=== PATIENT | female | born 1960 | race Caucasian/White ===

== ENCOUNTER 2023-10-19 09:56 | Emergency (ER) | payer OTHER, SELFPAY ==
[2023-10-19 10:06] VITALS: BP 120/72
[2023-10-19 10:51] VITALS: BMI 21.0
[2023-10-19] MEDS: ZOFRAN 4 MG IV (11:06)
[2023-10-19] MEDS: NSS 1000 IV (11:06)
[2023-10-19 11:07] LABS: % Basophils 0.4 % (0-2); % Eosinophils 0.1 % (0-6); % Immature Granulocytes 0.3 % (0-0.5); % Lymphocytes 4.7 % (20.5-51.1); % Monocytes 5.6 % (1.7-9.3); % Neutrophils 88.9 % (42.2-75.2); Absolute Lymphocytes 0.5 10^3/uL (1.2-3.4); Absolute Monocytes 0.6 10^3/uL (0.1-0.6); Absolute Neutrophils 9.8 10^3/uL (1.4-6.5); Hematocrit 45.9 % (37.0-47.0); Hemoglobin 15.1 g/dL (12.0-16.0); Mean Corp Hgb Conc. 32.9 g/dL (33.0-37.0); Mean Corpuscular Hgb 28.5 pg (27.0-31.0); Mean Corpuscular Volume 86.6 fL (81.0-99.0); Mean Platelet Volume 9.2 fL (7.4-10.4); Nucleated Red Blood Cells % 0 %; Platelet Count 237 10^3/uL (130-400); Red Cell Dist. Width 13.8 % (11.5-14.5)
[2023-10-19 11:24] LABS: ALT (SGPT) 19 U/L (0-35); AST (SGOT) 28 U/L (14-36); Albumin 4.4 g/dl (3.5-5.0); Alkaline Phosphatase 104 U/L (38-126); Blood Urea Nitrogen 6 mg/dl (7-17); Calcium 8.9 mg/dl (8.4-10.2); Carbon Dioxide 24 mmol/L (22-30); Chloride 104 mmol/L (98-107); Estimated Creatinine Clearance 79 ml/min; Glucose 109 mg/dl (70-99); Lipase 54 U/L (23-300); Potassium 4.3 mmol/L (3.5-5.1); Sodium 133 mmol/L (135-145); Total Bilirubin 0.9 mg/dl (0.2-1.3); Total Protein 6.9 g/dl (6.3-8.2); eGFR > 60.00
[2023-10-19] MEDS: PEPCID 20 MG IV (11:30)
--- NOTE | 2023-10-19 11:43 | ED.GENMED ---
History of Present Illness
General
Chief Complaint: Abdominal Symptoms
Source: patient
Exam Limitations: none
Time Seen by Provider: 10/19/23 10:49
Nursing documentation reviewed up to this point in time: agreed with
Travel History
Have you had any contact with someone who has COVID-19?: No
Do you have any symptoms of coronavirus? Fever > 100 degrees, chills, cough, shortness of breath, sore throat, loss of taste or smell, muscle aches, or headache?: No
History of Present Illness
History of Present Illness:
63-year-old female with past medical history of hypothyroidism presenting to the emergency department today with concerns of nausea and vomiting over the past 24 hours. This seemed to start after receiving her second shingles vaccination yesterday.
Denies any significant abdominal pain change in bowel movements fevers did have some chills. Had not similar but more mild symptoms with her first shingles vaccination.
Past History
Past History
ED Past Medical History: GERD (Gastritis), Hypothyroidism and Other (Migraine headaches, irritable bowel)
ED Past Surgical History: Tonsilectomy and Other ([place] teeth)
Social History
Tobacco: Non-smoker
Alcohol: None
Drug: None
Personal:
Living: with family
Employment: Employed
Family History
Family History: Early CAD (Father's side of the family in males that smoked heavily) and CAD
Review of Systems
Review of Systems
Allergies reviewed?: Yes
All Other Systems: ROS reviewed and negative except as documented in HPI and ROS
Phy Exam
Physical Exam
Physical Exam:
GENERAL: Alert , in no apparent distress
EYE: pupils equal and reactive
NECK: Supple, no significant adenopathy.
ENT: o/p clr, mmm.
CARDIAC: Regular rate and rhythm .
LUNGS: Clear breath sounds bilaterally, no acute respiratory distress, no wheezes/rales/rhonchi
ABDOMEN: Soft, without focal tenderness, no r/g, no cvat
NEUROLOGICAL: Alert and oriented, no focal neuro deficits
SKIN: Warm and dry, skin intact.
MUSCULOSKELETAL: No edema, well perfused.
PSYCH: Normal and appropriate interaction.
Course
Orders/Labs/Results
Orders:
Orders
10/19/23 10:59
Complete Blood Count/With Diff Urgent
Comprehensive Metabolic Panel Urgent
Lipase Urgent
10/19/23 11:03
0.9% Sodium Chloride 1000 ml [Nss] 1,000 ml IV BOLUS
Famotidine [Pepcid] 20 mg IV NOW STA
Ondansetron Injectable [Zofran] 4 mg IV NOW STA
10/19/23 11:04
Ondansetron Injectable [Zofran] 4 mg .ROUTE .STK-MED ONE
10/19/23 11:15
Sterile Water [Sterile Water For Injection] 10 ml .ROUTE .STK-MED ONE
Abnormal Lab Results
10/19/23
10:59
WBC 11.0 H 10^3/uL
(4.8-10.8)
MCHC 32.9 L g/dL
(33.0-37.0)
Absolute Neuts (auto) 9.8 H 10^3/uL
(1.4-6.5)
Absolute Lymphs (auto) 0.5 L 10^3/uL
(1.2-3.4)
Neutrophils % 88.9 H %
(42.2-75.2)
Lymphocytes % 4.7 L %
(20.5-51.1)
Sodium 133 L mmol/L
(135-145)
BUN 6 L mg/dl
(7-17)
Glucose 109 H mg/dl
(70-99)
10/19/23 10:59
10/19/23 10:59
Vital Signs
Initial and Last Documented VS:
Initial Vital Signs
Temp Pulse Resp BP Pulse Ox
98.9 F 96 16 120/72 99
10/19/23 10:06 10/19/23 10:06 10/19/23 10:06 10/19/23 10:06 10/19/23 10:06
Last Documented Vital Signs
Temp Pulse Resp BP Pulse Ox
98.9 F 96 16 120/72 99
10/19/23 10:06 10/19/23 10:06 10/19/23 10:06 10/19/23 10:06 10/19/23 10:06
MDM/Problems Addressed
MDM/Problems Addressed:
63-year-old female presenting to the emergency department today with concerns of nausea and vomiting since yesterday after receiving the shingles vaccination. Here no abdominal pain vital signs are normal patient no obvious distress white count of
11.0 but otherwise labs unremarkable. Patient with improvement of symptoms after receiving Zofran and fluids. Patient appears stable for outpatient management given return precautions. Symptoms could be secondary to side effects. Unlikely be
acute surgical process of the abdomen considering no abdominal pain and normal labs.
*Critical Care Note
Total Time (30-74mins, 75-104mins- exclusive of procedures): Not Applicable
ED Attending Note
-
Portions of this chart may have been created with voice recognition software.� Occasional wrong word or��sound alike� substitutions may have occurred due to the inherent limitations of voice recognition software.
Discharge Plan
Departure
Patient Disposition: Home (Routine Discharge)
Date of Disposition: 10/19/23
Time of Disposition: 12:30
Patient with high blood pressure during this ER visit?: No
Condition: Good
Covid-19: Not Applicable
Discharge Problem:
Nausea & vomiting
Instructions: Nausea and Vomiting, Adult (DC)
Prescriptions:
New
ondansetron 4 mg tablet,disintegrating
4 mg PO Q6H PRN (Reason: nausea and vomiting) Qty: 7 0RF
No Action
levothyroxine 50 MCG tablet
50 mcg PO DAILY
Vitamin D2 25,000 unit Capsule
50,000 unit PO DAILY
Nurtec ODT 75 mg Tablet,Disintegrating
75 mg PO ONCE PRN (Reason: migraines)
lidocaine [Lidoderm] 5 % adhesive patch,medicated
2 patch topical DAILY Qty: 15 0RF
valacyclovir 1 gram tablet
1,000 mg PO Q8H Qty: 21 0RF
oxycodone-acetaminophen [Percocet] 5-325 mg tablet
1 tab PO Q6HPRN PRN (Reason: pain) Qty: 7 0RF
Referrals:
Ely Gutierrez MD [Family Provider] -
Activity Restrictions/Additional Instructions:
You came to the emergency department today with concerns of nausea vomiting since yesterday. Here you had a reassuring evaluation and exam. Please take Zofran and Benadryl as needed to help with symptoms return to the emergency department for any
worsening, new or concerning symptoms.
Interventions
Interventions:
*Risk Screen - Suicide Last Done: 10/19/23 10:06
*General Assessment Last Done: 10/19/23 10:06
*Neglect/Abuse Screening Last Done: 10/19/23 10:06
ED- Fall Risk Assessment Last Done: 10/19/23 11:01
*ED COVID-19 Vaccine History Last Done: 10/19/23 10:06
AF-Tifuab-Eiuotgkypm Assessment Last Done: 10/19/23 11:01
== END 2023-10-19 12:52 | disposition home or self-care (01) ==
LOC: EMR 09:56
PROVIDERS: Emergency Medicine; EMERGENCY PHYSICIAN Emergency Medicine; FAMILY PHYSICIAN Family Medicine
DX: R11.2 Nausea with vomiting, unspecified (principal); K21.9 Gastro-esophageal reflux disease without esophagitis; E03.9 Hypothyroidism, unspecified; K58.9 Irritable bowel syndrome, unspecified; G43.909 Migraine, unspecified, not intractable, without status migrainosus; K29.70 Gastritis, unspecified, without bleeding; Z88.1 Allergy status to other antibiotic agents; Z88.8 Allergy status to other drugs, medicaments and biological substances
CPT/HCPCS: 99284; 96374; 96375; 96361; 80053; 83690; 85025

== ENCOUNTER 2023-12-31 12:02 | Inpatient (IN) | payer OTHER, SELFPAY ==
[2023-12-31] VITALS (15 sets, daily range): BP systolic 123–153; BP diastolic 71–89; BMI 21.0; BMI 20.3
--- NOTE | 2023-12-31 07:28 | ED.GENMED ---
History of Present Illness
General
Chief Complaint: Chest Pain
Time Seen by Provider: 12/31/23 07:12
Travel History
Have you had any contact with someone who has COVID-19?: No
Do you have any symptoms of coronavirus? Fever > 100 degrees, chills, cough, shortness of breath, sore throat, loss of taste or smell, muscle aches, or headache?: No
History of Present Illness
History of Present Illness:
63-year-old female presents to the emergency department for evaluation of left upper quadrant abdominal pain gradually worsening for the past week. She noticed the pain developing shortly after testing positive for COVID-19 on December 20. Pain is
pleuritic in nature, and worse with certain body positions. Denies any clear worsening with supine posture. Denies any chest pain, forceful coughing, fevers, or night sweats. No leg swelling or calf pain. Appetite is diminished but no
postprandial pain, no vomiting or diarrhea.
Past History
Past History
ED Past Medical History: GERD (Gastritis), Hypothyroidism and Other (Migraine headaches, irritable bowel)
ED Past Surgical History: Tonsilectomy and Other ([place] teeth)
Social History
Tobacco: Non-smoker
Alcohol: None
Drug: None
Personal:
Living: with family
Employment: Employed
Family History
Family History: Early CAD (Father's side of the family in males that smoked heavily) and CAD
Review of Systems
Review of Systems
Allergies reviewed?: Yes
All Other Systems: ROS reviewed and negative except as documented in HPI and ROS
Phy Exam
Physical Exam
Physical Exam:
GEN: Well appearing, NAD, WDWN
Eyes: PERRLA, EOMs intact, no scleral icterus
HENT: NCAT, oral mucosa moist, no JVD, no cervical adenopathy.
Lungs: CTAB, no wheezes, rales, rhonchi, normal chest wall excursion
Cardiac: RRR, no M/R/G, no peripheral edema. Radial pulses 2+ bilat
Abdomen: Soft, moderate tenderness to the epigastrium and left upper quadrant, increased pain with attempted splenic capture but no palpable splenomegaly
Neuro: AO x 3
MSK: No gross deformity or ecchymosis. No edema. No digital clubbing
Skin: No rashes, petechiae. Normal color, no pallor or jaundice.
Psych: Calm, cooperative, proper hygiene
Scores
Heart Score for Chest Pain Patients
STEMI patient?: No
History: Slightly or Non-Suspicious
ECG: Normal
Age: >45 - <65 years
Risk Factors: 1 or 2 Risk Factors
Troponin: </= Normal Limit
Heart Score for Chest Pain Patients: 2
Heart Score Risk: 2.5% MACE over next 6 weeks
Course
Orders/Labs/Results
Orders:
Orders
12/31/23 07:09
Electrocardiogram (*1) Urgent
Reason for Study: Abdominal Pain
EKG- Treatment ONCE
12/31/23 07:46
C-Reactive Protein Urgent
Comment: ADD ON
Complete Blood Count/With Diff Urgent
Comprehensive Metabolic Panel Urgent
Erythrocyte Sed Rate Urgent
Comment: ADD ON
Lipase Urgent
Comment: ADD ON
NT-proBNP Urgent
Troponin I Urgent
12/31/23 08:08
D-Dimer Urgent
12/31/23 08:20
Add On- LAB Urgent
Tests Added?: lipase
12/31/23 09:24
CR Chest - 2 Views Urgent
Comment:
Reason For Exam: chest pain
12/31/23 Lunch
Regular
12/31/23 10:01
Aspirin 325 mg PO NOW STA
12/31/23 10:08
CARDIOLOGY CONSULT Routine
Consulting Provider: Daniele Joy
Was physician already notified: Yes
12/31/23 10:21
Add On- LAB Routine
Tests Added?: sed rate, crp
12/31/23 11:48
Admit/Transfer Patient As Directed
Co-Sign Provider:
Level of Care: Inpatient admission
Assign to:: Telemetry
Physician / Group: Yolanda/hospitalist
Diagnosis: pleuritic chest pain
Reason for Telemetry: Other
Other Reason for Telemetry: peluritic chest pain
Date to Stop Telemetry: 01/02/24
Time to Stop Telemetry: 11:00
Reason for Hospitalization: pericarditis
Expected length of stay greater than two midnights?: Yes
ELOS- Estimated Length of Stay in days: 3
I certify the patient meets the requirements for IP care: Yes
12/31/23 11:50
Code Status As Directed
Resuscitation Status: Full Code
12/31/23 12:00
Colchicine 0.6 mg PO BID
12/31/23 13:00
Pantoprazole [Protonix IV] 40 mg IV DAILY
12/31/23 14:14
Acetaminophen [Tylenol] 650 mg PO Q4HWA
Bisacodyl [Dulcolax] 10 mg RECTAL [id number] PRN
Docusate W/Senna [Senokot-S] 1 tablet PO BIDPRN PRN
Ondansetron Injectable [Zofran] 4 mg IV Q6HPRN PRN
Polyethylene Glycol Powder [Miralax] 17 grams PO DAILYPRN PRN
rimegepant [Nurtec ODT] 75 mg PO ONCE PRN
12/31/23 14:14
Echo 2D MMode Color/Doppler Routine
Reason for Study: pleuritic chest pain
Activity As Directed
Activity Level: As Tolerated
Pneumatic Compression Sleeves As Directed
Type: Knee high
Vital Signs As Directed
Frequency: Per unit guidelines
DX Deep Vein Thrombosis Video Routine
12/31/23 15:00
Troponin I Q8H
12/31/23 23:00
Troponin I Q8H
01/01/24 06:00
Basic Metabolic Panel IN AM
Complete Blood Count/No Diff IN AM
Magnesium IN AM
01/01/24 08:00
Levothyroxine [Synthroid] 50 mcg PO DAILY
ergocalciferol (vitamin D2) 50,000 unit PO DAILY
01/02/24 06:00
Basic Metabolic Panel IN AM
Complete Blood Count/No Diff IN AM
01/02/24 11:00
DC Protocol for Telemetry ONCE
Abnormal Lab Results
12/31/23
07:46
Absolute Neuts (auto) 6.7 H 10^3/uL
(1.4-6.5)
Lymphocytes % 16.6 L %
(20.5-51.1)
Glucose 109 H mg/dl
(70-99)
Troponin I 0.054 H* ng/ml
C-Reactive Protein 36.60 H mg/L
(0.0-10.00)
12/31/23 07:46
12/31/23 07:46
Vital Signs
Initial and Last Documented VS:
Initial Vital Signs
Temp Pulse Resp BP Pulse Ox
98.2 F 90 20 142/85 98
12/31/23 07:03 12/31/23 07:03 12/31/23 07:03 12/31/23 07:03 12/31/23 07:03
Last Documented Vital Signs
Temp Pulse Resp BP Pulse Ox
98.2 F 85 14 131/73 98
12/31/23 07:03 12/31/23 13:00 12/31/23 12:15 12/31/23 13:00 12/31/23 13:00
MDM/Problems Addressed
MDM/Problems Addressed:
63-year-old female presents with epigastric pain that has been gradually worsening. She denies postprandial symptoms and has no vomiting or diarrhea to suggest GI illness. Interestingly she is exquisitely tender to palpation in the epigastrium but
of note the symptoms are also pleuritic and radiates to the scapula. Her workup reveals an elevated troponin the exact etiology of which is not clear. Certainly consider pericarditis however this does not typically raise troponins. She does not
present ill enough or clinical signs of CHF to suggest myocarditis. Certainly could reflect cardiac injury in the setting of COVID, nevertheless given the uncertainty of the diagnosis we will admit this patient for further cardiac workup
Comment
Comment:
EKG independently interpreted by me shows normal sinus rhythm at a rate of [address] changes suspicious for ischemia, QTc of 453
*Critical Care Note
Total Time (30-74mins, 75-104mins- exclusive of procedures): Not Applicable
ED Attending Note
-
Portions of this chart may have been created with voice recognition software.� Occasional wrong word or��sound alike� substitutions may have occurred due to the inherent limitations of voice recognition software.
Discharge Plan
Departure
Patient Disposition: Admit
Date of Disposition: 12/31/23
Time of Disposition: 10:03
Admit to: Telemetry
Presentation/result/management discussed w/ accepting MD/DO: Hospitalist
Discharge Problem:
Acute pericarditis
Interventions
Interventions:
*Risk Screen - Suicide Last Done: 12/31/23 07:21
*General Assessment Last Done: 12/31/23 07:21
*Neglect/Abuse Screening Last Done: 12/31/23 07:21
ED- Fall Risk Assessment Last Done: 12/31/23 07:21
*ED COVID-19 Vaccine History Last Done: 12/31/23 07:21
ED- Cardiac Assessment Last Done: 12/31/23 07:21
[2023-12-31 07:57] LABS: % Basophils 0.6 % (0-2); % Eosinophils 0.7 % (0-6); % Immature Granulocytes 0.3 % (0-0.5); % Lymphocytes 16.6 % (20.5-51.1); % Monocytes 6.6 % (1.7-9.3); % Neutrophils 75.2 % (42.2-75.2); Absolute Basophils 0.1 10^3/uL (0-0.2); Absolute Eosinophils 0.1 10^3/uL (0-0.7); Absolute Lymphocytes 1.5 10^3/uL (1.2-3.4); Absolute Monocytes 0.6 10^3/uL (0.1-0.6); Absolute Neutrophils 6.7 10^3/uL (1.4-6.5); Hematocrit 41.3 % (37.0-47.0); Hemoglobin 13.8 g/dL (12.0-16.0); Mean Corp Hgb Conc. 33.4 g/dL (33.0-37.0); Mean Corpuscular Hgb 28.6 pg (27.0-31.0); Mean Corpuscular Volume 85.5 fL (81.0-99.0); Mean Platelet Volume 9.9 fL (7.4-10.4); Nucleated Red Blood Cells % 0 %; Platelet Count 269 10^3/uL (130-400); Red Blood Cell Count 4.83 10^6/uL (4.20-5.40); Red Cell Dist. Width 13.2 % (11.5-14.5)
[2023-12-31 08:07] LABS: ALT (SGPT) 25 U/L (0-35); AST (SGOT) 31 U/L (14-36); Albumin 4.2 g/dl (3.5-5.0); Alkaline Phosphatase 110 U/L (38-126); Blood Urea Nitrogen 9 mg/dl (7-17); Carbon Dioxide 28 mmol/L (22-30); Chloride 103 mmol/L (98-107); Estimated Creatinine Clearance 79 ml/min; Glucose 109 mg/dl (70-99); Potassium 3.9 mmol/L (3.5-5.1); Sodium 140 mmol/L (135-145); Total Bilirubin 0.6 mg/dl (0.2-1.3); Total Protein 6.7 g/dl (6.3-8.2); eGFR > 60.00
[2023-12-31 08:24] LABS: NT-proBNP 116 pg/ml; Troponin I 0.054 ng/ml
[2023-12-31 08:46] LABS: Lipase 62 U/L (23-300)
[2023-12-31 09:10] LABS: D-Dimer 0.41 ug/mlFEU (0.00-0.50)
--- NOTE | 2023-12-31 10:09 | HPS.HSE ---
Addendum entered and electronically signed by Mirella Guerrero MD 12/31/23 13:36:
Discussed with cardiology, does not feel patient has pericarditis, recommend to hold colchicine for now.
They will still check echocardiogram.
Pettus more epigastric pain given pt gave the story history that pain worse with food.
Will check abdominal CT, and consult GI
Original Note:
Family Physician
-
Family Physician: Ely Gutierrez MD
Chief Complaint
-
pleuritic L lower chest pain
History of Present Illness
HPI: 63-year-old female PMH GERD/gastritis, hypothyroidism, migraine headaches, irritable bowel, recent diagnosis of COVID 12/21/23; p/w left lower pleuritic chest pain that started when she was diagnosed with COVID-19 on December 21, 2023. Pain
localized, worse with taking deep breath, not really related to position.
Pt otherwise denies to other areas of chest pain, abd pain, fever/chills, etc.
Medical History
Past Medical History
Past Medical History: Reports Other
Additional Past Medical History:
GERD/gastritis
hypothyroidism
migraine headaches
irritable bowel
Past Surgical History: Reports Other
Additional Past Surgical History:
distant h/o tonsillectomy, wisdom teeth extraction
Social History
Tobacco: Non-smoker
Alcohol: None
Personal:
Living: With Family
Family History
Family History: Not pertinent
Allergies / Home Medications
Allergies reflects when Allergies were last updated in [employer].
Home Medications with original date entered in [employer]
Allergy/Medication List:
Allergies
Allergy/AdvReac Type Severity Reaction Status Date / Time
ciprofloxacin [From Cipro] Allergy Nausea / Verified 12/31/23 07:03
Vomiting
ciprofloxacin HCl Allergy Nausea / Verified 12/31/23 07:03
[From Cipro] Vomiting
prochlorperazine edisylate Allergy Unknown Verified 12/31/23 07:03
[From Compazine]
prochlorperazine maleate Allergy Unknown Verified 12/31/23 07:03
[From Compazine]
Home Medications
levothyroxine 50 mcg tablet 50 mcg PO SUTUWETHFRSA 08/16/18
rimegepant 75 mg disintegrating tablet (Nurtec ODT) 75 mg PO ONCE PRN migraines 06/15/22
ergocalciferol (vitamin D2) 1,250 mcg (50,000 unit) capsule 1,250 mcg PO SCHULTZ 12/31/23
levothyroxine 50 mcg tablet 100 mcg PO MO 12/31/23
Review of Systems
-
Constitutional: Denies Fever
Cardiac: Reports See HPI
Physical Exam
Vital Signs
Vital Signs
Temp Pulse Resp BP Pulse Ox
36.8 C 84 13 135/71 97
12/31/23 07:03 12/31/23 08:15 12/31/23 08:15 12/31/23 08:00 12/31/23 08:15
Physical Exam
General: Well Developed, Well Nourished, No Apparent Distress, Comfortable and Conversant
HEENT: NormoCephalic, Moist mucous membranes and Atraumatic
Respiratory: Clear and Non Labored Respirations; No Accessory Resp Muscle Use
Cardiac: S1/S2 and Regular Rhythm; No Murmur or Rub
GI: Soft, Non Tender, Non Distended and Normal Bowel Sounds; No Organomegaly
Rectal: Deferred by Provider
Musculoskeletal: No Clubbing, No Cyanosis and No Edema
Skin: No Rash
Neuro: Awake and Nonfocal/grossly intact
Psych: Calm and Intact Judgment/Insight
Laboratory Results
-
12/31/23 07:46
12/31/23 07:46
Laboratory Results
Total Bilirubin 0.6 mg/dl (0.2-1.3) 12/31/23 07:46
AST 31 U/L (14-36) 12/31/23 07:46
ALT 25 U/L (0-35) 12/31/23 07:46
Alkaline Phosphatase 110 U/L (38-126) 12/31/23 07:46
Troponin I 0.054 ng/ml H* 12/31/23 07:46
Lipase 62 U/L (23-300) 12/31/23 07:46
Data Reviewed
-
Diagnostic Radiology: Report Reviewed by me
Lab Data: Labs Reviewed by me
Impression/Plan
-
HPI: 63-year-old female PMH GERD/gastritis, hypothyroidism, migraine headaches, irritable bowel, recent diagnosis of COVID 12/21/23; p/w left lower pleuritic chest pain that started when she was diagnosed with COVID-19 on December 21, 2023. Pain
localized, worse with taking deep breath, not really related to position.
Pt otherwise denies to other areas of chest pain, abd pain, fever/chills, etc.
CXR:
No evidence of active cardiopulmonary disease.
A/P:
# pleuritic left lower chest pain possibly related to COVID associated pericarditis
# troponin elevation likely due to non-ischemic myocardial injury
Trop 0.054 , cont to trend
D-dimer negative which essentially rules out VTE such as PE
Check echo
EKG NSR, unrevealing
Start empiric colchicine with Protonix IV ppx
Card CS
# recent diagnosis of COVID 12/21/23
no resp symptom except pleuritic chest pain
Good sat on RA
# GERD/gastritis
# Hypothyroidism
Cont GIG TENDER Synthroid
# Migraine headaches
# irritable bowel
DVT ppx: SCD
FC
--- NOTE | 2023-12-31 10:17 | CON.CAR ---
Consultation
Consultation Request
Date/Time Consultation Requested: 12/31/23
Date/Time Consultation Performed: 12/31/23
Requesting Provider: Dr Guerrero
Performing Provider: Dr Joy (primary Dr Vasquez)
Reason for Consultation: ? pericarditis with COVID
Medical History
-
Chief Complaint: chest pain
History of Present Illness:
63-year-old female with a past medical history of reflux and hypothyroidism who had COVID 12/21/2023. She reports her course was typical but she did feel awful. She had diffuse myalgias, cough, rhinorrhea, sore throat and extreme fatigue. At times
she would have sharp shooting chest pains wrapping around to her back. However, these have resolved. What brings her in today is a constant upper abdominal pain. It had been intermittent, but today worsened to constant. It is in the midline to
left side. Worse with eating and abdominal distention. She does feel that when she takes a deep breath. There is no pain when she leans forward or lies back. There is no pain in the chest any longer. No black stool and no blood in the urine or
stool.
Past Medical History
Past Medical History: GERD and Hypothyroidism
Past Surgical History: Tonsilectomy
Social History
Tobacco: Non-Smoker
Alcohol: None
Family History
Family History: Early CAD (father <55yo)
Allergies / Home Medications
Allergy/AdvReac Type Severity Reaction Status Date / Time
ciprofloxacin [From Cipro] Allergy Nausea / Verified 12/31/23 07:03
Vomiting
ciprofloxacin HCl Allergy Nausea / Verified 12/31/23 07:03
[From Cipro] Vomiting
prochlorperazine edisylate Allergy Unknown Verified 12/31/23 07:03
[From Compazine]
prochlorperazine maleate Allergy Unknown Verified 12/31/23 07:03
[From Compazine]
�Medication �Instructions �Recorded �Confirmed �Type
levothyroxine 50 mcg tablet 50 mcg PO DAILY 08/16/18 12/31/23 History
ergocalciferol (vitamin D2) 25,000 50,000 unit PO DAILY 06/15/22 12/31/23 History
unit capsule
lidocaine 5 % topical patch 2 patch topical DAILY #15 ea 06/15/22 12/31/23 Rx
(Lidoderm)
rimegepant 75 mg disintegrating 75 mg PO ONCE PRN migraines 06/15/22 12/31/23 History
tablet (Nurtec ODT)
Review of Systems
-
All other systems: Negative unless noted
Physical Exam
Vital Signs
Temp Pulse Resp BP Pulse Ox
98.2 F 84 13 135/71 97
12/31/23 07:03 12/31/23 08:15 12/31/23 08:15 12/31/23 08:00 12/31/23 08:15
Lab Results
12/31/23 07:46
12/31/23 07:46
Troponin I 0.054 ng/ml H* 12/31/23 07:46
Ngn-C-Iuowofevyib Pept 116 pg/ml 12/31/23 07:46
Physical Exam
General: Well Developed, Well Nourished and No Apparent Distress
HEENT: Normocephalic
Cardiac: S1/S2, Regular Rhythm, Irregular Rhythm, Murmur and Rub
GI: Soft and Other (quite tender in the epigastric/left midline upper abdomen that is worse with palpation but present at rest)
Genito-urinary: No Costovertebral Tender
Musculoskeletal: No Clubbing, No Cyanosis and No Edema
Neuro: AO x 3
Impression / Plan
-
63-year-old with reflux and hypothyroidism and recent COVID infection presents with abdominal pain. We are asked to comment on whether or not this could be pericarditis.
Abdominal pain: Is very reproducible on exam with exquisite tenderness. It is in the epigastric to slight left section of the upper abdomen. There is no chest pain. EKG is normal. No rub on exam. I do not suspect that pericarditis is causing
this pain. It is interesting that her LFTs and lipase are completely normal. I wonder if this could all be muscular from her recent illness and coughing. For now I would not start colchicine as this may make her abdominal symptoms worse. I do
not think that we are treating pericarditis.
GIven normal lipise, lfts, if normal evaluation, could consider NSAID for general treatment of myalgia if ok with GI
Abnormal troponin: Suspect due to recent COVID illness. However, it is unusual in the presence of an normal EKG and no chest pain. I would check an echocardiogram tomorrow to rule out myocarditis. C-reactive protein is still up as well, certainly
a large inflammatory process occurred with her COVID infection. Interestingly, in the past she has always had these mildly abnormal troponins without an etiology.
Elevated blood pressure without a diagnosis of hypertension: Suspect due to pain. Will monitor.
COVID -19 Day 0 is 12/21/23.
Finding discussed with Dr. Guerrero, patient and her . He was at the bedside and provided additional history.
Data Reviewed
-
EKG: Tracing Personally Visualized and interpreted (NSR with ns st abnormality, no change from prior)
Radiology: Image Personally Visualized and interpreted (cardiac silouhuette elongeated and narrow)
Labs: Labs Reviewed by me (trop 0.054 probnp 116)
Old Records: Reviewed (SED 04/27/2015 Normal at 7 mets; TTE 04/27/2015: Normal )
[2023-12-31] MEDS: ASPIRIN 325 MG PO (10:28)
[2023-12-31 11:39] LABS: Erythrocyte Sed Rate 16 mm/hour (0-20)
[2023-12-31] MEDS: PROTONIX IV 40 MG IV (13:32)
[2023-12-31] MEDS: COLCHICINE 0.599999999999999978 MG PO (13:37)
[2023-12-31] MEDS: NSS (PRESERVATIVE FREE) 10 ML IV (13:37)
--- NOTE | 2023-12-31 14:14 | EDRN ---
orders processed for the pt, this RN notified pharmacy
[2023-12-31 15:05] LABS: Troponin I 0.047 ng/ml
--- NOTE | 2023-12-31 16:06 | EDRN ---
this RN called the receiving unit and notified them that paper report was going to be tubed up
--- NOTE | 2023-12-31 16:47 | CON.GI ---
Consultation
-
Date/Time Consultation Requested: 12/31/2023, 1:30 pm
Date/Time Consultation Performed: 12/31/2023, 5:30pm
Requesting Provider: Dr. Guerrero
Performing Provider: Dr. Chanel
Reason for Consultation: abd pain
Medical History
Chief Complaint / HPI
Chief Complaint: pleuritic left lower chest pain
History of Present Illness:
63 yo F recent COVID 12/21/2023 p/w left lower pleuritic chest pain. Seen by cardiology and at that point felt to be more epigastric pain with abd distension worse with eating as well as deep breath. EKG normal with no rub so felt unlikely to be
pericarditis. Also had abnormal trop thought due to COVID. Plan is for echo tmwr to evaluate for myocarditis.
On d/w pt her symptoms of COVID were cough, rhinorrhea, diarrhea, fatigue, ears clogged for 7 days. She had some mild epigastric discomfort but then got worse last few days. Worse with food (feels full quickly) and deep breath. Having normal BM 3
times today, looser but not diarrhea.
Bloodwork reviewed pertinent for normal CBC, CMP, lipase. CRP 36.6.
CT a/p done today showed mild wall thickening of stomach c/w gastritis, small hepatic cysts, urinary bladder thickening.
CXR normal.
Blood GI procedures reviewed colonoscopy November [address] Parker.
Upper endoscopy October 2013 done for epigastric pain normal performed by Dr. Giron. Pathology showed gastritis.
Colonoscopy Dr. Parker April 2010 normal.
Past Medical History
Past Medical History: GERD, Hypothyroidism and Other (migraines, IBS)
Past Surgical History: Other (tonsil, wisdom teeth)
Social History
Tobacco: Non-Smoker
Alcohol: None
Family History
Family History: Reviewed & Not Pertinent
Allergies / Home Medications
Allergy/AdvReac Type Severity Reaction Status Date / Time
ciprofloxacin [From Cipro] Allergy Nausea / Verified 12/31/23 07:03
Vomiting
ciprofloxacin HCl Allergy Nausea / Verified 12/31/23 07:03
[From Cipro] Vomiting
prochlorperazine edisylate Allergy Unknown Verified 12/31/23 07:03
[From Compazine]
prochlorperazine maleate Allergy Unknown Verified 12/31/23 07:03
[From Compazine]
�Medication �Instructions �Recorded
levothyroxine 50 mcg tablet 50 mcg PO SUTUWETHFRSA 08/16/18
rimegepant 75 mg disintegrating 75 mg PO ONCE PRN migraines 06/15/22
tablet (Nurtec ODT)
ergocalciferol (vitamin D2) 1,250 1,250 mcg PO SCHULTZ 12/31/23
mcg (50,000 unit) capsule
levothyroxine 50 mcg tablet 100 mcg PO MO 12/31/23
Review of Systems
-
All other systems: A 12 pt ROS was Negative except as stated above in HPI
Vital Signs
Temp Pulse Resp BP Pulse Ox
98.2 F 80 16 145/89 98
12/31/23 07:03 12/31/23 16:30 12/31/23 14:37 12/31/23 16:00 12/31/23 16:30
Physical Exam
Exam
General: Well Developed
HEENT: Normocephalic
Respiratory: Clear
Cardiac: S1/S2
GI: Tender
Musculoskeletal: No Clubbing
Skin: Warm
Neuro: AO x 3
Psych: Calm
Results
WBC 9.0 10^3/uL (4.8-10.8) 12/31/23 07:46
Hgb 13.8 g/dL (12.0-16.0) 12/31/23 07:46
Hct 41.3 % (37.0-47.0) 12/31/23 07:46
MCV 85.5 fL (81.0-99.0) 12/31/23 07:46
Plt Count 269 10^3/uL (130-400) 12/31/23 07:46
Absolute Neuts (auto) 6.7 10^3/uL (1.4-6.5) H 12/31/23 07:46
Sodium 140 mmol/L (135-145) 12/31/23 07:46
Potassium 3.9 mmol/L (3.5-5.1) 12/31/23 07:46
Chloride 103 mmol/L (98-107) 12/31/23 07:46
Carbon Dioxide 28 mmol/L (22-30) 12/31/23 07:46
BUN 9 mg/dl (7-17) 12/31/23 07:46
Creatinine 0.7 mg/dL (0.6-1.0) 12/31/23 07:46
Calcium 9.0 mg/dl (8.4-10.2) 12/31/23 07:46
Total Bilirubin 0.6 mg/dl (0.2-1.3) 12/31/23 07:46
AST 31 U/L (14-36) 12/31/23 07:46
ALT 25 U/L (0-35) 12/31/23 07:46
Alkaline Phosphatase 110 U/L (38-126) 12/31/23 07:46
Lipase 62 U/L (23-300) 12/31/23 07:46
Diagnostic Image Results:
Prior GI Procedures:
EGD:
Colonoscopy:
Assessment / Plan
-
63 yo F no significant pmh here with epigastric pain - unclear if GI vs cardiac vs pulmonary vs MSK.
If GI could be gastritis vs PUD vs gastroparesis (post infectious in setting of COVID).
Will start with increasing PPI to BID and adding carafate.
Has echo scheduled tomorrow.
May need EGD if no improvement - I reviewed with pt r/a/b of EGD inc but not limited to bleeding, infection, perforation.
Further recommendations pending clinical course.
-
-
Thank you for consultation and allowing me to participate in the patient's care. Please call the monitoring tech GI physician during the after hours with any questions or concerns.
[2023-12-31] MEDS: TYLENOL 650 MG PO ×2 (17:40→20:42)
[2023-12-31] MEDS: ZOFRAN 4 MG IV (20:25)
[2023-12-31] MEDS: PROTONIX 40 MG PO (20:42)
[2023-12-31] MEDS: CARAFATE PO (20:53)
[2023-12-31] MEDS: DILAUDID 0.25 MG IV (20:59)
--- NOTE | 2023-12-31 22:30 | PTCARENOTE ---
Patient complaining of 8/10 LUQ abdominal pain radiating to back. Patient reporting nausea and states 'she feels like she is going to pass out' after getting up to use the bathroom. BP 133/75 HR 75. PRN zofran given. INTERACTIVE MARKETING STRATEGIST made aware, stat IV
dilaudid given as ordered with relief. Plan of care ongoing.
[2024-01-01] MEDS: TYLENOL PO ×2 (01:32→05:24)
[2024-01-01] MEDS: CARAFATE PO (03:06)
[2024-01-01 03:38] VITALS: BP 140/77
[2024-01-01] MEDS: SYNTHROID 50 MCG PO (06:20)
[2024-01-01 07:10] VITALS: BP 136/85
--- NOTE | 2024-01-01 07:14 | W.PN.GI.CBS2 ---
Today's Communication / Plan
-
Please see assessment and plan for details.
Assessment / Plan
-
1. Epigastric/chest pain: Definitely with some pleuritic component to her discomfort, with mildly elevated troponins and recent COVID worry for myocarditis. There is some postprandial component to and some thickening noted on CT scan as well. At
this point we will continue PPI and Carafate, await echo and continue care per cardiology. Will hold on endoscopy for now pending the above.
Subjective
Subjective
Date of Service: January 01, 2024
Patient doing okay, still pleuritic sounding pain, also did have some discomfort after eating. Denies any fevers or chills overnight.
Objective
Data Reviewed
Laboratory Data:
Laboratory Results
Total Bilirubin 0.6 mg/dl (0.2-1.3) 12/31/23 07:46
AST 31 U/L (14-36) 12/31/23 07:46
ALT 25 U/L (0-35) 12/31/23 07:46
Alkaline Phosphatase 110 U/L (38-126) 12/31/23 07:46
Lipase 62 U/L (23-300) 12/31/23 07:46
Vital Signs and I&O:
Vital Signs
Temp Pulse Resp BP Pulse Ox
98.0 F 76 18 140/77 100
01/01/24 03:38 01/01/24 03:38 01/01/24 03:38 01/01/24 03:38 01/01/24 03:38
I&O
12/31/23 01/01/24 01/02/24
06:59 06:59 06:59
Intake Total 480 / 480
Balance 480 / 480
Physical Exam
Physical Exam
General: NAD
Abdomen: normal bowel sounds, soft, mild epigastric and tenderness along the costal margin, no masses or bruits, no ascites
[2024-01-01 08:10] LABS: Hematocrit 41.9 % (37.0-47.0); Hemoglobin 13.7 g/dL (12.0-16.0); Mean Corp Hgb Conc. 32.7 g/dL (33.0-37.0); Mean Corpuscular Hgb 28.5 pg (27.0-31.0); Mean Corpuscular Volume 87.3 fL (81.0-99.0); Mean Platelet Volume 9.6 fL (7.4-10.4); Platelet Count 238 10^3/uL (130-400); Red Cell Dist. Width 13.4 % (11.5-14.5); White Blood Cell Count 8.7 10^3/uL (4.8-10.8)
[2024-01-01 08:37] LABS: Blood Urea Nitrogen 8 mg/dl (7-17); Calcium 8.8 mg/dl (8.4-10.2); Carbon Dioxide 27 mmol/L (22-30); Chloride 103 mmol/L (98-107); Estimated Creatinine Clearance 76 ml/min; Glucose 105 mg/dl (70-99); Magnesium 2.2 mg/dl (1.6-2.3); Potassium 4.2 mmol/L (3.5-5.1); Sodium 137 mmol/L (135-145); eGFR > 60.00
--- NOTE | 2024-01-01 08:52 | W.PN.CD ---
Addendum entered and electronically signed by Jamison Vasquez MD 01/01/24 13:32:
I ordered an EkG for today to look for any changes.
CT suggested possible gastritis and the location of the pain could be compatible.
Addendum entered and electronically signed by Jamison Vasquez MD 01/01/24 13:27:
I saw and examined the patient.
The DIVERSIFIED CROPS I FARMWORKER's note was reviewed and I agree with the note.
Comment: Her epigastric pain did worsen with inspiration and radiates laterally but never into the chest and feels better supine. This pattern is really not consistent with pericarditis. Her echo is normal. We will arrange for an elective
outpatient treadmill stress test for further evaluation of her abnormal troponin. Cardiology will sign off.
Original Note:
Today's Communication / Plan
-
Echo today is normal, no further cardiac work-up indicated at this time
Impression / Plan
-
63-year-old with reflux and hypothyroidism and recent COVID infection presents with abdominal pain. We are asked to comment on whether or not this could be pericarditis.
Abdominal pain:
-reproducible on exam with exquisite tenderness. It is in the epigastric to slight left section of the upper abdomen. Also worse with turning to left side and inspiration- could have musculoskeletal component. Of note, she reports abdominal pain
better this AM, but after eating last night, she noted nausea and worsened abdominal pain, which improved with Zofran and Dilaudid. We do not suspect pericarditis at this time.
-GI is following and evaluating. She is being treated with PPI/sucralfate.
-Echo this AM: Normal biventricular size and systolic function without regional wall motion abnormality. Estimated LVEF 55-60%. No significant valve disease.
Abnormal troponin:0.054, 0.047
-Suspect acute non-ischemic myocardial injury due to recent COVID illness.
-Interestingly, in the past she has always had these mildly abnormal troponins without an etiology.
-EKG this admit normal, Echo today normal as above
Elevated blood pressure without a diagnosis of hypertension: mild
-Suspect due to pain. Continue to monitor.
COVID -19 Day 0 is 12/21/23.
Physical Exam
Vital Signs/Labs
Vital Signs
Temp Pulse Resp BP Pulse Ox
99.5 F 75 16 136/85 98
01/01/24 07:10 01/01/24 07:10 01/01/24 07:10 01/01/24 07:10 01/01/24 07:10
12/31/23 01/01/24 01/02/24
06:59 06:59 06:59
Actual Weight 56.954 kg
01/01/24 07:30
01/01/24 07:30
Magnesium 2.2 mg/dl (1.6-2.3) 01/01/24 07:30
12/31/23
07:46
[id number] Pept 116
LAB Results
12/31/23 12/31/23 12/31/23
07:46 14:14 14:32
Troponin I 0.054 H* Cancelled 0.047 H*
12/31/23 12/31/23
22:14 23:00
Troponin I Cancelled Cancelled
Physical Exam
Constitutional: No acute distress
EENT: Anicteric
Cardiovascular: Rhythm & rate is regular
Respiratory: Respiratory effort normal and Lungs clear to auscul.
Neuro/Psych: AO x 3
Data Reviewed
-
Date of Service: January 01, 2024
EKG: Other (Tele SR)
Echo: Report Reviewed by me
Labs: Labs Reviewed by me
[2024-01-01] MEDS: PROTONIX 40 MG PO ×2 (09:00→21:12)
[2024-01-01] MEDS: TYLENOL 650 MG PO ×4 (09:00→21:12)
[2024-01-01] MEDS: DRISDOL (VITAMIN D2) 50000 UNITS PO (09:01)
[2024-01-01] MEDS: CARAFATE 1 GRAM PO ×4 (09:02→21:12)
[2024-01-01] MEDS: NSS (PRESERVATIVE FREE) IV (09:02)
--- NOTE | 2024-01-01 10:11 | W.PN.HOSP.TC ---
Today's Communication/Plan
-
see A/P
Assessment / Plan
Assessment / Plan
HPI: 63-year-old female PMH GERD/gastritis, hypothyroidism, migraine headaches, irritable bowel, recent diagnosis of COVID 12/21/23; p/w left lower pleuritic chest pain that started when she was diagnosed with COVID-19 on December 21, 2023. Pain
localized, worse with taking deep breath, not really related to position.
Pt otherwise denies to other areas of chest pain, abd pain, fever/chills, etc.
CXR:
No evidence of active cardiopulmonary disease.
CT AP:
1. Mild wall thickening in the gastric body and antrum suspicious for gastritis.
2. Moderate diffuse urinary bladder wall thickening which could be secondary to cystitis or chronic neurogenic bladder.
3. Small hepatic cysts.
A/P:
# pleuritic/localized left lower chest pain vs left upper abdominal/epigastric pain, unclear cause, gastric vs cardiac
Was felt to be related to COVID associated pericarditis/myocarditis on admission, however, card feels more epigastric/abdominal in nature due to worsening pain postprandial
D-dimer negative which essentially ruled out VTE such as PE
LFT and lipase level WNL
CT AP: noted mild gastritis
GI consulted and recc to continue PPI BID, added Carafate AC HS, holding endoscopy for now
echo unrevealing: Normal biventricular size and systolic function without regional wall motion abnormality. Estimtaed LVEF 55-60%. No significant valve disease.
Hold colchicine per card
# troponin elevation likely due to non-ischemic myocardial injury
Trop 0.054 -> 0.047
EKG NSR, unrevealing
# recent diagnosis of COVID 12/21/23
no resp symptom except pleuritic chest pain
sat at 98% on RA
# h/o GERD/gastritis
# Hypothyroidism
Cont SPIRAL WINDER Synthroid
# Migraine headaches
# irritable bowel
DVT ppx: SCD
FC
DW daughter at bedside
Anticipated Discharge: 24 - 48 hours
Subjective/Interval History
-
Date of Service: January 01, 2024
Objective Data
-
Labs:
Laboratory Results
01/01/24
07:30
WBC 8.7
Hgb 13.7
Hct 41.9
Plt Count 238
Sodium 137
Potassium 4.2
Chloride 103
Carbon Dioxide 27
BUN 8
Creatinine 0.7
Glucose 105 H
Calcium 8.8
Vital Signs:
Vital Signs
Temp Pulse Resp BP Pulse Ox
37.5 C 75 16 136/85 98
01/01/24 07:10 01/01/24 07:10 01/01/24 07:10 01/01/24 07:10 01/01/24 07:10
I&O
12/31/23 01/01/24 01/02/24
06:59 06:59 06:59
Intake Total 480 / 480
Balance 480 / 480
Review of Systems
-
Abdomen/GI: Reports Abdominal Pain (LUQ/ epigastric area)
Physical Exam
-
General: Well Developed, Well Nourished, No Apparent Distress, Comfortable and Conversant; Negative Respiratory Distress
HEENT: Normocephalic, Atraumatic, Nose Appears Normal and Ears Appear Normal; Negative Oxygen
Respiratory: Clear to Auscultation and Non Labored Respirations; Negative Accessory Resp Muscle Use
Cardiac: Regular Rhythm and S1/S2
GI: Soft, Nondistended, Normal Bowel Sounds and Tender (LUQ, localized)
Skin: Warm and Dry
Neuro: Awake, Alert, Oriented, AO x 3 and Nonfocal/Grossly Intact
Psych: Calm and Intact Judgement/Insight
Data Reviewed
-
CT Scan: Report Reviewed by me
Labs: Labs Reviewed by me
[2024-01-01 11:41] VITALS: BP 131/75
--- NOTE | 2024-01-01 12:18 | CM ---
Patient seen bedside with daughter, initial assessment completed. Patient resides with her daughter, , and mother in a two story home, three steps to enter. Patient denies DME, VN, or SNF. Patient confirms PCP Brenda. Patient
pharmacy [facility], confirms prescription coverage. Patient denies food insecurities. CM will continue to follow for discharge planning needs.
Plan; home no needs anticipated.
[2024-01-01 15:31] VITALS: BP 123/75
[2024-01-01 19:55] VITALS: BP 139/79
[2024-01-01] MEDS: NON-FORMULARY ITEM 75 MG PO (21:27)
[2024-01-01] MEDS: ZOFRAN 4 MG IV (21:28)
[2024-01-01 23:47] VITALS: BP 135/79
[2024-01-02] MEDS: TYLENOL PO ×2 (01:02→04:46)
[2024-01-02 03:43] VITALS: BP 137/75
[2024-01-02] MEDS: SYNTHROID 50 MCG PO (05:26)
--- NOTE | 2024-01-02 06:52 | W.PN.GI.CBS2 ---
Today's Communication / Plan
-
PPI and carafate
Assessment / Plan
-
Pt with abdominal pain/CP that started after COVID, improved on PPI and carafate
- at this point would continue on PPI and carafate
- continue diet
- would f/u with outpatient GI doctor, Dr Villegas and have eventual outpatient EGD
- avoid nsaids
will sign off call with questions
Subjective
Subjective
Date of Service: January 02, 2024
Pt on PPI and carafate says pain much better. Did have some dyspepsia after eating but no vomiting
Objective
Data Reviewed
Laboratory Data:
Laboratory Results
Magnesium 2.2 mg/dl (1.6-2.3) 01/01/24 07:30
Total Bilirubin 0.6 mg/dl (0.2-1.3) 12/31/23 07:46
AST 31 U/L (14-36) 12/31/23 07:46
ALT 25 U/L (0-35) 12/31/23 07:46
Alkaline Phosphatase 110 U/L (38-126) 12/31/23 07:46
Lipase 62 U/L (23-300) 12/31/23 07:46
Vital Signs and I&O:
Vital Signs
Temp Pulse Resp BP Pulse Ox
97.9 F 67 17 137/75 97
01/02/24 03:43 01/02/24 03:43 01/02/24 03:43 01/02/24 03:43 01/02/24 03:43
I&O
12/31/23 01/01/24 01/02/24
06:59 06:59 06:59
Intake Total 480 / 480 1080 / 1080
Balance 480 / 480 1080 / 1080
Physical Exam
Physical Exam
GI: Soft, Non Distended and Non Tender
[2024-01-02 07:55] VITALS: BP 131/76
[2024-01-02] MEDS: CARAFATE 1 GRAM PO ×2 (08:03→12:15)
[2024-01-02] MEDS: PROTONIX 40 MG PO (08:04)
[2024-01-02] MEDS: NSS (PRESERVATIVE FREE) IV (08:04)
[2024-01-02] MEDS: TYLENOL 650 MG PO ×2 (08:04→12:15)
[2024-01-02 08:52] LABS: Hematocrit 42.1 % (37.0-47.0); Hemoglobin 13.8 g/dL (12.0-16.0); Mean Corp Hgb Conc. 32.8 g/dL (33.0-37.0); Mean Corpuscular Hgb 28.5 pg (27.0-31.0); Mean Corpuscular Volume 86.8 fL (81.0-99.0); Mean Platelet Volume 9.5 fL (7.4-10.4); Platelet Count 259 10^3/uL (130-400); Red Blood Cell Count 4.85 10^6/uL (4.20-5.40); Red Cell Dist. Width 13.3 % (11.5-14.5); White Blood Cell Count 8.6 10^3/uL (4.8-10.8)
[2024-01-02 09:23] LABS: ALT (SGPT) 17 U/L (0-35); AST (SGOT) 21 U/L (14-36); Albumin 3.8 g/dl (3.5-5.0); Alkaline Phosphatase 92 U/L (38-126); Blood Urea Nitrogen 12 mg/dl (7-17); Calcium 9.3 mg/dl (8.4-10.2); Carbon Dioxide 27 mmol/L (22-30); Chloride 102 mmol/L (98-107); Direct Bilirubin 0.4 mg/dl (0.0-0.4); Estimated Creatinine Clearance 76 ml/min; Glucose 96 mg/dl (70-99); Magnesium 2.1 mg/dl (1.6-2.3); Potassium 4.4 mmol/L (3.5-5.1); Sodium 137 mmol/L (135-145); Total Bilirubin 0.6 mg/dl (0.2-1.3); Total Protein 6.3 g/dl (6.3-8.2); eGFR > 60.00
[2024-01-02 11:55] VITALS: BP 124/72
--- NOTE | 2024-01-02 12:10 | W.PN.HOSP.TC ---
Today's Communication/Plan
-
d/c
Assessment / Plan
Assessment / Plan
HPI: 63-year-old female PMH GERD/gastritis, hypothyroidism, migraine headaches, irritable bowel, recent diagnosis of COVID 12/21/23; p/w left lower pleuritic chest pain that started when she was diagnosed with COVID-19 on December 21, 2023. Pain
localized, worse with taking deep breath, not really related to position.
Pt otherwise denies to other areas of chest pain, abd pain, fever/chills, etc.
pleuritic/localized left lower chest pain vs left upper abdominal/epigastric pain, unclear cause, gastric vs cardiac--Was felt to be related to COVID associated pericarditis/myocarditis on admission, however, card feels more epigastric/abdominal in
nature due to worsening pain postprandial --D-dimer negative which essentially ruled out VTE such as PE--LFT and lipase level WNL--CT AP: noted mild gastritis--GI consulted and rec to continue PPI BID, added Carafate AC HS, holding endoscopy for
now--echo unrevealing: Normal biventricular size and systolic function without regional wall motion abnormality. Estimated LVEF 55-60%. No significant valve disease--Hold colchicine per card
troponin elevation likely due to non-ischemic myocardial injury--Trop 0.054 -> 0.047--EKG NSR, unrevealing
recent diagnosis of COVID 12/21/23--no resp symptom except pleuritic chest pain--sat at 98% on RA
h/o GERD/gastritis
Hypothyroidism--Cont MASTER BAKER Synthroid
Migraine headaches
irritable bowel
DVT ppx: SCD
Full Code
Anticipated Discharge: Today
Subjective/Interval History
-
Date of Service: January 02, 2024
pt ready for d/c
Objective Data
-
Labs:
Laboratory Results
01/02/24
08:23
WBC 8.6
Hgb 13.8
Hct 42.1
Plt Count 259
Sodium 137
Potassium 4.4
Chloride 102
Carbon Dioxide 27
BUN 12
Creatinine 0.7
Glucose 96
Calcium 9.3
Total Bilirubin 0.6
AST 21
ALT 17
Alkaline Phosphatase 92
Vital Signs:
max temp for 24 hours
01/01/24
19:55
Temp 98.6 F
Vital Signs
Temp Pulse Resp BP Pulse Ox
98.6 F 68 16 124/72 96
01/02/24 11:55 01/02/24 11:55 01/02/24 11:55 01/02/24 11:55 01/02/24 11:55
I&O
01/01/24 01/02/24 01/03/24
06:59 06:59 06:59
Intake Total 480 / 480 1320 / 1320
Balance 480 / 480 1320 / 1320
Review of Systems
-
All other systems: Reviewed and negative
Physical Exam
-
General: Well Developed, Well Nourished and No Apparent Distress
HEENT: Normocephalic and Atraumatic; Negative Oxygen
Respiratory: Clear to Auscultation; Negative Wheezes or Rhonchi
Cardiac: Regular Rhythm and S1/S2; Negative Murmur
GI: Soft, Nontender, Nondistended and Normal Bowel Sounds
Musculoskeletal: No Clubbing, No Cyanosis and No Edema
Skin: Warm
Neuro: Awake and Alert
--- NOTE | 2024-01-02 12:12 | CM ---
Patient seen at bedside with physician and patient daughter. Patient for discharge home and daughter to provide transportation. CM will continue to follow for discharge planning needs.
Plan; home with no needs.
--- NOTE | 2024-01-02 16:44 | W.DCSUMMARY ---
Addendum entered and electronically signed by Isadora Yee MD 01/03/24 06:26:
Error: Principal diagnosis should read nonischemic myocardial injury
Original Note:
Discharge Summary
Discharge Data
Date of Admission: 12/31/23
Date of Discharge: 01/02/24
-
Pending Results: No
Hospital Course
Primary care physician : Ely Gutierrez
Principal Discharge diagnosis : Pleuritic chest pain consistent with gastroesophageal reflux disease/gastritis, nonischemic troponin elevation
Chronic Discharge diagnosis : Recent diagnosis of COVID, hypothyroidism, migraines, irritable bowel
Hospital Course : Patient is a 63-year-old female who presented with left lower pleuritic chest pain that started when she was diagnosed with COVID on December 21, 2023. Patient describes pain worse with taking a deep breath and not related to any
position. There was some consideration for pericarditis and so the patient was admitted.
Problem #1: Pleuritic chest pain consistent with gastroesophageal reflux disease/gastritis. Patient had nonischemic troponin elevation and as mentioned, admitting physician discussed with cardiology. They did not feel that the patient had
pericarditis however echocardiogram was checked. Echocardiogram showed normal biventricular size and function with an ejection fraction of 55 to 60%. Upon further history, it was felt that this was related to food intake. GI was consulted.
Patient was given a proton pump inhibitor and Carafate in the patient improved with this regimen. She will be continued on her proton pump inhibitor and Carafate and should follow-up with her outpatient GI doctor for eventual outpatient endoscopy.
She has been instructed to avoid nonsteroidal medications.
Problem #2: All other medical issues. These include Recent diagnosis of COVID, hypothyroidism, migraines, irritable bowel. These medical issues were stable during her hospitalization. Medications were continued as able.
Patient is stable for discharge home at this time. If there are any questions regarding this dictation or her hospital stay, please not hesitate to call. Our office number is [phone].
Important imaging findings :
ABDOMINAL/PELVIC CT SCAN IMPRESSION:
1. Mild wall thickening in the gastric body and antrum suspicious for gastritis.
2. Moderate diffuse urinary bladder wall thickening which could be secondary to cystitis or chronic neurogenic bladder.
3. Small hepatic cysts.
Discharge Plan
-
Patient Disposition: Home (Routine Discharge)
Discharge Diagnosis/Procedures: Pleuritic chest pain consistent with gastritis, non-ischemic myocardial troponin elevation, recent COVID, hypothyroidism, migraine headaches, irritable bowel
Condition: Good
Diet: As tolerated
Activity: As tolerated
Driving Restrictions: As prior to admission
Bathing Restrictions: None
Others Tests: Stress test (treadmill) 2 months- cardiology office will call you to arrange [phone]
Referrals:
Jamison Vasquez MD [Active] - in one to two months (Dr. Vasquez's office will call you to arrange follow-up visit with him or a nurse practitioner after your stress test)
Ely Gutierrez MD [Family Provider] - in less than 1 week
Prescriptions:
New
sucralfate 1 gram Tablet
1 g PO ACHS Qty: 60 0RF
pantoprazole 40 mg Tablet,Delayed Release (Dr/Ec)
40 mg PO BID Qty: 60 0RF
Continued
levothyroxine 50 MCG tablet
50 mcg PO SUTUWETHFRSA
Nurtec ODT 75 mg Tablet,Disintegrating
75 mg PO ONCE PRN (Reason: migraines)
ergocalciferol (vitamin D2) 1,250 mcg (50,000 unit) capsule
1,250 mcg PO SCHULTZ
levothyroxine 50 mcg tablet
100 mcg PO MO
Discharge Orders:
Discharge Patient (As Directed); Ordered 01/02/24
Ordered By: Isadora Yee
Discharge Date and Time
Discharge Date/Time: 01/02/24 13:19
Print Language: GEORGIAN
--- NOTE | 2024-01-02 17:03 | PN.CDI ---
CDI
- -
CDI:
Physician Documentation Request
Admit Date: 12/31/23 12:02
Dear Doctor Nakia,
Patient admitted with pleuritic chest pain consistent with gastroesophageal reflux disease/gastritis
Hospitalist progress notes state ' troponin elevation likely due to non-ischemic myocardial injury '
Cardiology note on 12/31 states 'Abnormal troponin: 0.054, 0.047 suspect acute non-ischemic myocardial injury due to recent COVID illness'
Discharge summary states 'nonischemic troponin elevation'
In an attempt to clarify potential conflicting documentation, please clarify the etiology of the elevated troponin:
Nonischemic myocardial injury
Nonischemic troponin elevation
Other
Use of terms such as suspected, likely, concern for, or probable (associated with a specific diagnosis that is being evaluated, monitored, or treated as if it exists) are acceptable and can be coded in the inpatient setting, when documented at the
time of discharge.
Thank you,
Maribel Hoff RN, BSN
CDI Specialist
tiger text
Please use your independent medical judgment in providing your response.
== END 2024-01-02 13:19 | disposition home or self-care (01) | DRG 392 ==
LOC: 4 EAST ACU 12:02
PROVIDERS: Physician Assistant; ADMITTING PHYSICIAN Internal Medicine; ATTENDING PHYSICIAN Internal Medicine; CONSULT PHYSICIAN Internal Medicine Cardiovascular Disease; CONSULT PHYSICIAN Internal Medicine Gastroenterology; EMERGENCY PHYSICIAN Emergency Medicine; FAMILY PHYSICIAN Family Medicine
DX: K29.70 Gastritis, unspecified, without bleeding (principal); I5A Non-ischemic myocardial injury (non-traumatic); K21.9 Gastro-esophageal reflux disease without esophagitis; E03.9 Hypothyroidism, unspecified; K58.9 Irritable bowel syndrome, unspecified; G43.909 Migraine, unspecified, not intractable, without status migrainosus; K76.89 Other specified diseases of liver; Z79.899 Other long term (current) drug therapy; Z82.49 Family history of ischemic heart disease and other diseases of the circulatory system; Z86.16 Personal history of COVID-19
CPT/HCPCS: 71046; 74176; 80048; 80053; 82248; 83690; 83735; 83880; 84484; 85025; 85027; 85379; 85652; 86140; 93005; 93306; 99285

== ENCOUNTER → 2024-03-06 10:24 | Outpatient (REF) | payer OTHER, SELFPAY | LOC: RCS 10:24 | PROVIDERS: ATTENDING PHYSICIAN Internal Medicine Cardiovascular Disease; FAMILY PHYSICIAN Family Medicine | DX: R79.89 Other specified abnormal findings of blood chemistry (principal) | CPT/HCPCS: 93017 ==

== ENCOUNTER 2024-08-14 23:42 | Emergency (ER) | payer OTHER, SELFPAY ==
[2024-08-14 23:58] VITALS: BP 120/80
[2024-08-15 00:16] VITALS: BMI 19.6
[2024-08-15 00:19] VITALS: BP 132/75
[2024-08-15] MEDS: TYLENOL 1000 MG PO (00:49)
[2024-08-15] MEDS: ZOFRAN 4 MG IV (00:49)
--- NOTE | 2024-08-15 00:50 | ED.GENMED ---
History of Present Illness
General
Chief Complaint: Cold/Flu/URI Symptoms
Source: patient and spouse
Exam Limitations: none
Time Seen by Provider: 08/15/24 00:38
Nursing documentation reviewed up to this point in time: agreed with
History of Present Illness
History of Present Illness:
64-year-old female hypothyroid migraines reflux presents with 72 hours of nausea vomiting fever cough diarrhea exposed to family member with influenza feels weak nauseous and dizzy coughing nondrinker non-smoker
Past History
Past History
ED Past Medical History: GERD (Gastritis), Hypothyroidism and Other (Migraine headaches, irritable bowel)
ED Past Surgical History: Tonsilectomy and Other ([place] teeth)
Social History
Tobacco: Non-smoker
Alcohol: None
Drug: None
Personal:
Living: with family
Employment: Employed
Family History
Family History: Early CAD (Father's side of the family in males that smoked heavily) and CAD
Review of Systems
Review of Systems
All Other Systems: Not applicable
Constitutional: Reports fever and fatigue
EENT: Reports no symptoms
Respiratory: Reports cough
Cardiac: Denies chest pain
ABD/GI: Reports nausea, vomiting and diarrhea
: Reports no symptoms
Musculoskeletal: Reports muscle stiffness
Neurological: Reports dizzy and weakness
Endocrine: Reports no symptoms
Hematologic/Lymphatic: Reports no symptoms
Phy Exam
Physical Exam
Physical Exam:
Physical Exam
General: 64-year-old female looks uncomfortable occasionally cough
Neck: Dry lips
Heart: Regular
Lungs: No wheezing
Abdomen: Nontender
Neuro: alert and oriented. no focal neurological deficits
Skin: no rash
Psychiatric: well kept. interactive and cooperative
Extremities: no edema. no calf tenderness.
Course
Orders/Labs/Results
Orders:
Orders
08/15/24 00:18
COVID-19 Antigen Urgent
Source: Nasal Swab
Influenza A+B Rapid Molecular Urgent
MANOLO Source: Nasal Swab
Specimen Description:
08/15/24 00:43
0.9% Sodium Chloride 1000 ml [Nss] 1,000 ml IV BOLUS
Acetaminophen [Tylenol] 1,000 mg PO NOW STA
Ondansetron Injectable [Zofran] 4 mg IV NOW STA
CR Chest - 2 Views Urgent
Comment:
Reason For Exam: cough
08/15/24 00:50
Complete Blood Count/With Diff Urgent
Comprehensive Metabolic Panel Urgent
Abnormal Lab Results
08/15/24
00:50
Absolute Neuts (auto) 6.6 H 10^3/uL
(1.4-6.5)
Absolute Lymphs (auto) 0.4 L 10^3/uL
(1.2-3.4)
Absolute Monos (auto) 0.7 H 10^3/uL
(0.1-0.6)
Neutrophils % 84.8 H %
(42.2-75.2)
Lymphocytes % 4.7 L %
(20.5-51.1)
Monocytes % 9.6 H %
(1.7-9.3)
Glucose 116 H mg/dl
(70-99)
08/15/24 00:50
08/15/24 00:50
Vital Signs
Initial and Last Documented VS:
Initial Vital Signs
Temp Pulse Resp BP Pulse Ox
99.8 F 116 22 120/80 99
08/14/24 23:58 08/14/24 23:58 08/14/24 23:58 08/14/24 23:58 08/14/24 23:58
Last Documented Vital Signs
Temp Pulse Resp BP Pulse Ox
99.8 F 116 22 133/79 93
08/14/24 23:58 08/14/24 23:58 08/14/24 23:58 08/15/24 01:00 08/15/24 01:30
MDM/Problems Addressed
Differential Diagnosis Includes:
Pneumonia influenza viral syndrome dehydration electrolyte abnormality
MDM/Problems Addressed:
Weakness fatigue
*Radiology
Radiology exam reviewed: preliminary read by ED provider
*Pulse Oximetry
Patient hypoxic: no
*Critical Care Note
Total Time (30-74mins, 75-104mins- exclusive of procedures): Not Applicable
Update Note
Update Note:
Suspect influenza or other viral type syndrome, is dizzy weak with nausea will check electrolytes,
1:50 AM update patient feeling better labs chest x-ray noted
ED Attending Note
-
Portions of this chart may have been created with voice recognition software.� Occasional wrong word or��sound alike� substitutions may have occurred due to the inherent limitations of voice recognition software.
Discharge Plan
Departure
Patient Disposition: Home (Routine Discharge)
Date of Disposition: 08/15/24
Time of Disposition: 01:51
Patient with high blood pressure during this ER visit?: No
Condition: Good
Covid-19: Negative COVID-19
Discharge Problem:
Influenza
Instructions: Viral Syndrome (DC), Flu in adults - Discharge instructions
Prescriptions:
New
ondansetron 4 mg tablet,disintegrating
4 mg PO Q8H PRN (Reason: nausea and vomiting) Qty: 10 0RF
loperamide [Imodium A-D] 2 mg capsule
2 mg PO Q6H PRN (Reason: loose stool) Qty: 20 0RF
ibuprofen 600 mg tablet
600 mg PO Q8H PRN (Reason: fever or pain) Qty: 20 0RF
No Action
levothyroxine 50 MCG tablet
50 mcg PO SUTUWETHFRSA
Nurtec ODT 75 mg Tablet,Disintegrating
75 mg PO ONCE PRN (Reason: migraines)
ergocalciferol (vitamin D2) 1,250 mcg (50,000 unit) capsule
1,250 mcg PO SCHULTZ
levothyroxine 50 mcg tablet
100 mcg PO MO
sucralfate 1 gram Tablet
1 g PO ACHS Qty: 60 0RF
pantoprazole 40 mg Tablet,Delayed Release (Dr/Ec)
40 mg PO BID Qty: 60 0RF
Referrals:
Ely Gutierrez MD [Family Provider] -
Activity Restrictions/Additional Instructions:
Drink plenty of fluids
Tylenol or ibuprofen for fever body
Zofran for nausea vomiting
Imodium for loose stools
Interventions
Interventions:
*Risk Screen - Suicide Last Done: 08/14/24 23:58
*General Assessment Last Done: 08/15/24 00:16
*Neglect/Abuse Screening Last Done: 08/14/24 23:58
*ED COVID-19 Vaccine History Last Done: 08/15/24 00:11
ED- Pulmonary Assessment Last Done: 08/15/24 00:16
Discharge Date and Time
Print Language: AUSTRIAN
[2024-08-15 00:53] LABS: COVID-19 Antigen Negative (Negative)
[2024-08-15] MEDS: NSS 1000 IV (00:55)
[2024-08-15 01:00] VITALS: BP 133/79
[2024-08-15 01:25] LABS: % Basophils 0.4 % (0-2); % Eosinophils 0.1 % (0-6); % Immature Granulocytes 0.4 % (0-0.5); % Lymphocytes 4.7 % (20.5-51.1); % Monocytes 9.6 % (1.7-9.3); % Neutrophils 84.8 % (42.2-75.2); ALT (SGPT) 18 U/L (0-35); AST (SGOT) 28 U/L (14-36); Absolute Lymphocytes 0.4 10^3/uL (1.2-3.4); Absolute Monocytes 0.7 10^3/uL (0.1-0.6); Absolute Neutrophils 6.6 10^3/uL (1.4-6.5); Albumin 4.1 g/dl (3.5-5.0); Alkaline Phosphatase 83 U/L (38-126); Blood Urea Nitrogen 8 mg/dl (7-17); Calcium 9.1 mg/dl (8.4-10.2); Carbon Dioxide 25 mmol/L (22-30); Chloride 103 mmol/L (98-107); Estimated Creatinine Clearance 63 ml/min; Glucose 116 mg/dl (70-99); Hematocrit 41.9 % (37.0-47.0); Mean Corp Hgb Conc. 33.4 g/dL (33.0-37.0); Mean Corpuscular Hgb 28.5 pg (27.0-31.0); Mean Corpuscular Volume 85.3 fL (81.0-99.0); Mean Platelet Volume 9.4 fL (7.4-10.4); Nucleated Red Blood Cells % 0 %; Platelet Count 210 10^3/uL (130-400); Potassium 3.9 mmol/L (3.5-5.1); Red Blood Cell Count 4.91 10^6/uL (4.20-5.40); Sodium 137 mmol/L (135-145); Total Bilirubin 0.6 mg/dl (0.2-1.3); Total Protein 6.5 g/dl (6.3-8.2); White Blood Cell Count 7.7 10^3/uL (4.8-10.8); eGFR > 60.00
[2024-08-15 02:00] VITALS: BP 121/77
[2024-08-15 03:00] VITALS: BP 121/71
== END 2024-08-15 03:07 | disposition home or self-care (01) ==
LOC: EMR 23:42
PROVIDERS: EMERGENCY PHYSICIAN Emergency Medicine; FAMILY PHYSICIAN Family Medicine
DX: J11.1 Influenza due to unidentified influenza virus with other respiratory manifestations (principal); K21.9 Gastro-esophageal reflux disease without esophagitis; E03.9 Hypothyroidism, unspecified; K58.9 Irritable bowel syndrome, unspecified; Z82.49 Family history of ischemic heart disease and other diseases of the circulatory system; Z87.19 Personal history of other diseases of the digestive system
CPT/HCPCS: 99283; 96374; 96361; 71046; 80053; 85025; 87502; 87811